=== PATIENT | female | born 1985 | race Caucasian/White ===

== ENCOUNTER → 2017-10-08 | Outpatient (CLI) | payer OTHER | LOC: FIMAGING 08:57 | PROVIDERS: ATTEND Advanced Practice Midwife | DX: O26.21 Pregnancy care for patient with recurrent pregnancy loss, first trimester (principal); Z3A.13 13 weeks gestation of pregnancy ==

== ENCOUNTER → 2017-11-19 | Outpatient (CLI) | payer OTHER | LOC: FIMAGING 08:13 | PROVIDERS: ATTEND Advanced Practice Midwife | DX: O26.22 Pregnancy care for patient with recurrent pregnancy loss, second trimester (principal); O44.42 Low lying placenta NOS or without hemorrhage, second trimester; Z3A.19 19 weeks gestation of pregnancy ==

== ENCOUNTER → 2018-02-18 | Outpatient (CLI) | payer OTHER | LOC: FIMAGING 09:20 | PROVIDERS: ATTEND Advanced Practice Midwife | DX: O44.43 Low lying placenta NOS or without hemorrhage, third trimester (principal); Z3A.32 32 weeks gestation of pregnancy ==

== ENCOUNTER → 2018-03-18 | Outpatient (CLI) | payer OTHER | LOC: FIMAGING 10:30 | PROVIDERS: ATTEND Advanced Practice Midwife | DX: O44.23 Partial placenta previa NOS or without hemorrhage, third trimester (principal); Z3A.36 36 weeks gestation of pregnancy ==

== ENCOUNTER 2018-03-20 11:35 | Inpatient (IN) | payer OTHER ==
--- NOTE | 2018-03-20 14:11 | PDGENHP ---
History and Physical History and Physical: Care: [facility] HPI: Patient is a 33 yo @ 36-5weeks that presents to L&D with complaints of not feeling well and taking BP at home reading 150's/100's. She denies any headaches, visual changes, epigastric pain. She does report nausea and just overall "blah" feeling[place]000 [place] She denies any contractions, LOF, VB. She does report +FM. EDC: 04/12/18 which is based on Ultrasound at 10 weeks. LMP: 06/26/17 which is unknown Her is complicated by: habitual aborter, marginal previa, low antithrombin III activity, excessive weight gain, proteinuria (0.46 @ 34wks) Review of Systems: Constitutional: Denies any fever, chills, or fatigue HEENT: denies any visual changes, difficulty swallowing, hearing loss Cardiovascular: Denies any chest pain, palpitations, leg swelling Respiratory: denies any cough, wheezing, or shortness of breathe GI: Denies any vomiting, diarrhea, constipation, +nausea : denies any dysuria, urgency, frequency, vaginal bleeding Musculoskeletal: denies any muscle or bone pain Skin: denies any rashes Neuro: denies any headache, seizures, lightheadedness, dizziness, or loss of consciousness Psychiatric: denies any depression, anxiety, or SI/HI thoughts HISTORY: Previous OB history: SABx3 (2015,2016,2017) Past medical history: anxiety (no meds) Past surgical history: none Social: Denies any alcohol, tobacco, or drug use. Family history: Not relevant Medications: PNV, DHA Allergies (list reaction): NKDA LABS: Rh: O+ ABS: Neg Rubella: Immune HbsAg: NR HIV: NR VDRL: NR 1hr: 63 GC: Neg Chlamydia: Neg Pap: Normal GBS: negative PHYSICAL EXAM: Constitutional: WN, A&Ox3 HEENT: normocephalic atraumatic, supple Skin: Warm, dry, intact Heart: RRR, no murmur Chest: CTA-B Abdomen: Soft, nontender, gravid SVE: deferred Extremities: 1+ edema, negative homans sign Neuro: grossly normal Psych: normal affect assessment: FHT baseline 130 +accels, no decels, moderate variability Contractions: toco irregular, but pt not feeling any pain/discomfort with them Assessment: 1) 33yo @ 36-5wks (10) 2) PreEclampsia without severe features 3) Marginal previa - no bleeding 4) Cat 1 FHR tracing Plan: 1) Admit to L&D 2) monitor BPs closely 3) NST q shift 4) steroids x2 (24hrs apart) 5) proceed with primary c/s on Sunday03/22/2018 @ 37wks due to previa reviewed with MFM, Milana Watson, recommended pt to stay in house and monitor closely until 37wks then deliver via primary c/s, deliver sooner if indicated by symptoms/abnormal labs. Dr Liseth Garcia, aware and agrees with plan of care. Today's visit was approximately 45 min, of which >50% of visit 30 min, was spent face to face with pt on direct counseling/coordination of care.
[2018-03-20] MEDS: BETAMETHASONE IM SYRINGE IM SCH (17:22)
--- NOTE | 2018-03-20 17:47 | GHP ---
DATE OF ADMISSION: 03/20/2018 ADMITTING DIAGNOSES: 1. Intrauterine at 36 weeks 5 days. 2. Marginal placenta previa. 3. Preeclampsia without severe features. HISTORY OF PRESENT ILLNESS: The patient is a 33-year-old, G4, P 0-0-3-0, at 36- 5/7 weeks, with an estimated due date 04/12/2018, by a 10 week ultrasound. The patient is under the care of the midwives at [facility] and will now be under the care of [facility] since the patient is now high risk. The patient presented to Labor and Delivery with complaints of not feeling well and blood pressures at home with readings of 150s over 100s. The patient denies any headaches, visual changes, epigastric or right upper quadrant pain at this time. She does report nausea, and just overall feeling "blah." Patient denies any leakage of fluid, vaginal bleeding or contractions. States good movement. The patient was just seen by MFM 2 days ago with an estimated weight 30th percentile and a marginal placenta previa noted; was previously a low-lying placenta. MFM recommended patient be delivered via at 37 weeks to avoid spontaneous labor. Patient hernandez good care and presented to [facility] in first trimester. is complicated by the patient being a habitual aborter. Work-up with antiphospholipid labs were negative. Patient does have a history of low antithrombin III activity and no anticoagulation needed during the . There has been excessive maternal weight gain, the patient put on 56 pounds at 34 weeks. There was some elevated blood pressures in the 3rd trimester and patient had proteinuria with an elevated P to C ratio 0.46 at 34 weeks. The patient did receive Tdap vaccine. GBS culture is negative. PAST OBSTETRICAL HISTORY: In 2015, missed AB at 7-8 weeks; in 2016, a missed AB at 10 weeks; in 2017, a missed AB at 11 weeks. PAST GYNECOLOGIC HISTORY: Age of menarche 17. Cycles every 28 days for 6-7 days. LMP 06/29/2017. The patient denies a history of any abnormal Pap smears or any exposure to sexually transmitted diseases. CURRENT MEDICATIONS: Include vitamins, DHA. ALLERGIES: No known drug allergies. PAST MEDICAL HISTORY: The patient has history of anxiety. PAST SURGICAL HISTORY: None. FAMILY HISTORY: Mother, grandmother with thyroid dysfunction. SOCIAL HISTORY: The patient is and she lives with her . 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 She denies any alcohol, tobacco, or illicit drug use during this . REVIEW OF SYSTEMS: Ten point review of systems negative. Pertinent positives noted in HPI. LABORATORIES: H and H first-trimester 14.4 and 41.7, platelets 266. Blood type O positive, antibody negative. RPR nonreactive. Rubella immune. Hepatitis B surface antigen negative. HIV negative. TSH 0.793. First trimester UDS negative. UA, urine culture negative. Pap smear normal 2015. Gonorrhea and chlamydia cultures negative in 10/2013. Innatal screen negative. H and H third-trimester 13.2 and 30.9. 1 hour Glucola 63. GBS culture is negative. LABORATORY STUDIES: White count 12.96, H and H 14.1 and 40, platelets 192. Creatinine 0.5, AST 24, ALT 22. The P to C ratio is elevated at 0.6. PHYSICAL EXAM: VITAL SIGNS: On admission, vital signs are stable. Blood pressure is labile, 120s to 130s over 80s to 90s, with a high of 140/101. The patient is afebrile, 36.7. Heart rate 81, respirations 14. GENERAL: The patient is a well-nourished, well-developed female. Alert and oriented x3. No apparent distress. SKIN: Dry, warm, without rash. NEURO: Grossly intact. CARDIOVASCULAR: Regular rate and rhythm. LUNGS: Clear to auscultation bilaterally. ABDOMEN: Gravid, soft, nontender. PELVIC: Deferred. EXTREMITIES: Normal to inspection without calf tenderness or edema. ASSESSMENT: The patient is a 33-year-old, 4, para 0-0-3-0, at 36-5/7 weeks with marginal placenta previa and preeclampsia without severe features. PLAN: 1. Admit to Labor and Delivery. 2. [facility] consulted and agrees with the plan. Will give late course of steroids 24 hours apart. 3. Continue to monitor blood pressures closely as well as onset of PIH symptoms , if worsening will start MgSO4. 4. Plan for delivery via per [facility] recommendation at 37 weeks on . 5. NSTs q. shift. 6. Will continue to monitor for any bleeding, signs of labor, or worsening PIH symptoms. /[id number]/MODL MTDD
--- NOTE | 2018-03-21 10:16 | OBPROG ---
Labor Progress Note Assessment/Plan: Assessment: IUP at 36w6d, preeclampsia without severe features marginal previa receiving BMZ - second dose this evening GBS -, O pos Plan: cont hosp bedrest and BMZ today and c/s tomorrow 03/21/18 10:10 Subjective/Intrapartum Course: 03/21/18 10:16 Pt doing well. Slept ok. No headache, nausea, or visual changes. Good FM, no leaking or bleeding. No ctxns. understands plan for primary c/s tomorrow am. will be NPO for 6 hrs prior. Objective: 03/20/18 12:50 03/20/18 12:50 Total Bilirubin 0.3 mg/dL (0.1-1.4) 03/20/18 12:50 AST 24 IU/L (14-46) 03/20/18 12:50 ALT 22 IU/L (9-52) 03/20/18 12:50 - SVE Membranes: Intact - Contraction Pattern Assessment Current Contraction Pattern: Other (Specify) (not kylah) - FHR Assessment Cooney FHR (bpm): 130 FHR Pattern Variability: Moderate FHR Category: 1 (reactive NST, accels, no decels) - Physical Exam General Appearance: WD/WN, alert, no apparent distress Abdomen: non-tender, soft, other (NST reactive) Extremities: non-tender, pedal edema (minimal) DTR- Lower Extremities: Knee (R): 2+, Knee (L): 2+ Skin: normal color, warm/dry Neuro/Psych: alert, normal mood/affect Oxytocin Orders Assessment - Pre-Induction/Augmentation Assessment Gestational Age: 36 week(s) and 5 day(s) ICD10 Worksheet Patient Problems: Problems Problem Status Onset Marginal placenta previa Acute Preeclampsia Acute and not yet delivered in third trimester Acute - ICD10 Problem Qualifiers (1) and not yet delivered in third trimester (2) Preeclampsia (3) Marginal placenta previa
[2018-03-21] MEDS: BETAMETHASONE IM SYRINGE IM SCH (17:18)
[2018-03-21] MEDS ORDERED: ZOLPIDEM TARTRATE 5 MG TAB PO PRN (19:19)
[2018-03-22 08:57] LABS: PLATELET COUNT 218 10^3/uL (150-400)
--- NOTE | 2018-03-22 09:33 | PDHPUP ---
History & Physical Update H&P update statement: This history and physical update is based on an assessment of the patient which was completed after admission or registration (within 24 hours), but prior to the surgery/procedure. I am now assuming the patient's care as of this morning. Plan has been decided upon for PLTCS with MFM recommendation secondary to marginal placenta previa. I met with patient and reviewed those recommendations and she is in agreement with that plan. Subjectively doing fine this AM - no new or evolving s/sx of PIH. No vaginal bleeding. RBA discussed with patient and consents signed for PLTCS. Routine preop orders, weight-based Ancef. H&P update: H&P reviewed & patient examined, no change in patient's condition since H&P completed
[2018-03-22] MEDS ORDERED: LR 500 ML IV ONE (09:51)
[2018-03-22] MEDS ORDERED: CITRIC ACID/SODIUM CITRATE 30 ML UDCUP PO ONE (09:51)
[2018-03-22] MEDS ORDERED: ceFAZolin 2 GM/DEXTROSE 100 ML IV ONE (09:51)
[2018-03-22] MEDS ORDERED: LR 1,000 ML IV SCH (10:00)
[2018-03-22] MEDS ORDERED: MEPERIDINE 25 MG/0.5 ML AMP IVP PRN (11:02)
[2018-03-22] MEDS ORDERED: METOCLOPRAMIDE 10 MG/2 ML VIAL IVP PRN ×2 (11:02→11:34)
[2018-03-22] MEDS ORDERED: fentaNYL 100 MCG/2 ML INJ IVP PRN (11:02)
[2018-03-22] MEDS ORDERED: ONDANSETRON 4 MG/2 ML VIAL IVP PRN ×2 (11:02→11:34)
[2018-03-22] MEDS ORDERED: PHENYLEPHRINE HCL 100 MCG/ML SYR IVP PRN (11:02)
--- NOTE | 2018-03-22 11:02 | PDANEPAE ---
ANE Past Medical History - Pulmonary History Hx Sleep Apnea: No ANE Review of Systems Review of Systems: ANE Patient History - Allergies Allergies/Adverse Reactions: No Known Allergies Allergy (Unverified 03/20/18 11:56) - Smoking Hx Smoking Status: Never smoked ANE Labs/Vital Signs - Labs Result Diagrams: 03/22/18 08:15 03/22/18 08:15 - Vital Signs Height: 157.48 cm Weight: 82.1 kg ANE Physical Exam - Airway Neck exam: FROM Mallampati Score: Class 2 Mouth exam: normal dental/mouth exam - Pulmonary Pulmonary: no respiratory distress - Cardiovascular Cardiovascular: regular rate and rhythym - ASA Status ASA Status: II ANE Anesthesia Plan Anesthesia Plan: spinal
[2018-03-22] MEDS ORDERED: fentaNYL 100 MCG/2 ML INJ ONE (11:08)
[2018-03-22] MEDS ORDERED: morphINE PF 5 MG/10 ML INJ ONE (11:09)
[2018-03-22] MEDS ORDERED: BUPIVACAINE/DEXTROSE 7.5MG/ML 2 ML SPINAL AMP SP ONE (11:11)
[2018-03-22] MEDS ORDERED: METOCLOPRAMIDE 10 MG/2 ML VIAL ONE (11:11)
[2018-03-22] MEDS ORDERED: DEXAMETHASONE 4 MG/ML VIAL ONE (11:11)
[2018-03-22] MEDS ORDERED: NALOXONE HCL 0.4 MG/ML INJ IVP PRN (11:34)
[2018-03-22] MEDS ORDERED: AMMONIA AROMATIC 1 EACH AMP IH ONE (11:36)
[2018-03-22] MEDS ORDERED: OXYTOCIN 10 UNIT/ML VIAL ONE (11:36)
[2018-03-22] MEDS ORDERED: LIDOCAINE 1% 300 MG/30 ML SDV ONE (11:36)
[2018-03-22] MEDS ORDERED: TERBUTALINE SULFATE 1 MG/ML VIAL ONE (11:36)
[2018-03-22] MEDS ORDERED: OLIVE OIL 118 ML BTL ONE (11:36)
[2018-03-22] MEDS ORDERED: MISOPROSTOL 200 MCG TAB ONE (11:37)
[2018-03-22] MEDS ORDERED: OXYTOCIN 100 UNITS/10 ML VIAL ONE (12:49)
--- NOTE | 2018-03-22 13:08 | POSTANESTH ---
Post Anesthetic Evaluation Cardiovascular Status: Similar to Pre-Op Cond Respiratory Status: Similar to Pre-op Cond. Level of Consciousness/Mental Status: Alert and Oriented Pain Control: Adequate, Prn Tx Ordered Nausea/Vomiting Control: Adequate, Prn Tx Ordered Complications Possibly Related to Anesthesia: None Noted
--- NOTE | 2018-03-22 13:15 | POSTOPPROG ---
Post Op Note Date of Operation: 03/22/18 Surgeon: Alfredo Al Clinical Reimbursement Specialist: Adamaris Aldana CNM, JADE Bates Anesthesia: Spinal Pre-op Diagnosis: Pre-eclampsia without severe features, Placenta previa ( marginal/partial) Post-op Diagnosis: Same Procedure: PLTCS Findings: Normal uterus, normal tubes and ovaries. Vigorous baby girl. Inf/Abcess present in the surg proc area at time of surgery?: No EBL: 600cc Complications: None Specimen(s): Placenta not sent to path, cord blood gasses not sent
--- NOTE | 2018-03-22 13:19 | OBDEL ---
Info Type: Primary Presentation at Delivery: Vertex L&D Analgesia/Anesthesia Type: Spinal GBS+: No Intrapartum Medications: Generic Name Dose Route Start Last Admin Trade Name Thierryq PRN Reason Stop Dose Admin Zolpidem Tartrate 5 mg 03/21/18 19:19 03/21/18 21:53 Ambien PO 09/17/18 19:18 5 mg HS PRN Administration Sleep/Insomnia Discontinued Medications Generic Name Dose Route Start Last Admin Trade Name Thierryq PRN Reason Stop Dose Admin Betamethasone Acet/Betameth SodPhos 12 mg 03/20/18 17:00 03/21/18 17:18 Celestone Im Syringe IM 03/21/18 17:01 12 mg Q24H SUJEY Administration Citric Acid/Sodium Citrate 30 ml 03/22/18 09:51 03/22/18 11:47 Bicitra PO 03/22/18 09:52 30 ml ONCALL ONE Administration Cefazolin Sodium/Dextrose 100 mls @ 200 mls/hr 03/22/18 09:51 03/22/18 11:39 Ancef IV 03/22/18 10:20 100 mls ONCALL ONE Administration Protocol - Hospital Course Intrapartum: 03/21/18 10:16 Pt doing well. Slept ok. No headache, nausea, or visual changes. Good FM, no leaking or bleeding. No ctxns. understands plan for primary c/s tomorrow am. will be NPO for 6 hrs prior. Indications for Delivery: Preeclampsia Mild, Placenta Previa (Marginal ) Operative Report - Delivery Pre-op Diagnoses: Pre-eclampsia without severe features, Placenta previa ( partial/marginal) Post-op Diagnoses: Same History of Prior Section: No Nulliparous Prior to Delivery: No Indications for Current Section: Placenta Previa (Marginal) Procedure: Scheduled Surgeon: Alfredo Al Observer Gravity Prospecting: Keli Cerrato (Adamaris Aldana CNM) Complications: None, Nucal Cord Findings: Healthy baby girl, normal placenta, normal tubes and uterus and ovaries EBL: 600cc Cord Gases: Not sent Data LORI: 04/12/18 Gestational Age: 37 week(s) and 0 day(s) Co[place] Delivery Date: 03/22/18 Delivery Time: 12:25 Sex of Infant: Female Score (1 Min): 8 Score (5 Min): 9 Shoulder Dystocia Time Head Delivered: 12:25 Time Body Delivered: 12:25 ICD10 Worksheet Patient Problems: Problems Problem Status Onset Marginal placenta previa Acute Preeclampsia Acute and not yet delivered in third trimester Acute
--- NOTE | 2018-03-22 13:22 | SUROPNOTE ---
LESLIE Operative Report - Surgery Date of Operation: 03/22/18 Surgeon: Alfredo Al Shift Superintendent Caustic Cresylate: Adamaris Aldana CNM, JADE Bates Anesthesia: Spinal Pre-op Diagnosis: Pre-eclampsia without severe features, Placenta previa ( marginal/partial) Post-op Diagnosis: Same Procedure: PLTCS Findings: Normal uterus, normal tubes and ovaries. Vigorous baby girl. Inf/Abcess present in the surg proc area at time of surgery?: No EBL: 600cc Complications: None Specimen(s): Placenta not sent to path, cord blood gasses not sent Technique: The patient was taken to the OR where spinal was placed / epidural was dosed and anesthesia found to be adequate. The patient was then positioned supine with a leftward tilt and a time-out was performed. She was given weight-based antibiotics prior to skin incision. The abdomen was prepped and draped in normal sterile fashion. A Pfannenstiel skin incision was made with the scalpel and carried down to the fascia. The fascia was incised in the midline and the incision extended bilaterally sharply with scissors. The fascia was dissected off of the underlying rectus muscles superiorly and inferiorly also sharply using scissors. The rectus were in the midline and the peritoneum identified and entered bluntly without issue. The peritoneal incision was extended and the bladder blade was then placed. The vesicouterine junction was identified and a bladder flap created sharply and developed bluntly. A transverse incision was made with the scalpel in the lower uterine segment and extended with cephalad and caudad traction on the incision edges. The head was encountered and elevated out of the pelvis and brought to the incision. We had brief difficulty delivering the baby's head through the incision and I did apply the hand-held soft cup vacuum and delivered the head with ease with one gentle pull. Suction only applied for 5 seconds. Head ultimately delivered atraumatically, followed by the shoulders and body. The nose and mouth were bulb suctioned. We did wait for 60 seconds before clamping and cutting the cord and then the was handed to pediatric staff. Cord blood gases were not sent and the placenta was not sent to pathology. The uterus was then exteriorized and carefully wiped of all debris. The uterus was closed in two layers - the first layer was running with 180 0-vloc and the second a vertical imbricating layer using 0-vicryl. The gutters were cleared of all clots. The uterine incision was reinspected and found to be hemostatic after placement of additional figure of eight sutures of 3-0 vicryl. The uterus was then returned to the abdomen. The fascia was elevated and the rectus muscles and subcutaneous tissues were found to be hemostatic. The fascia was closed with a running 0-Vicryl - single suture. The subcutaneous tissues were irrigated and hemostasis obtained. The subcutaneous space was not closed as she had 0.5cm of subcutaneous fat. The skin was closed with 4-0 vloc undyed and then covered with Medipore dressing. The patient tolerated the procedure and was taken to recovery in stable condition. Lap, needle, sponge, and instrument count were announced as correct times two. I was present and scrubbed for the entire case.
[2018-03-22] MEDS ORDERED: PROMETHAZINE HCL 25 MG/ML INJ IVP PRN (14:49)
[2018-03-22] MEDS ORDERED: oxyCODONE IR 5 MG TAB PO PRN (14:49)
[2018-03-22] MEDS ORDERED: SIMETHICONE 80 MG TAB CHEW PO PRN (14:49)
[2018-03-22] MEDS ORDERED: DOCUSATE SODIUM 100 MG CAP PO PRN (14:49)
[2018-03-22] MEDS: KETOROLAC 30 MG/1 ML SDV IVP SCH ×2 (15:42→21:59)
[2018-03-22] MEDS: ACETAMINOPHEN 325 MG TAB PO SCH ×2 (18:53→22:00)
[2018-03-22] MEDS: IBUPROFEN 600 MG TAB PO SCH ×2 (18:53→22:00)
[2018-03-23] MEDS: KETOROLAC 30 MG/1 ML SDV IVP SCH ×2 (03:40→10:16)
[2018-03-23] MEDS: IBUPROFEN 600 MG TAB PO SCH ×4 (04:26→22:50)
[2018-03-23] MEDS: ACETAMINOPHEN 325 MG TAB PO SCH ×4 (04:34→22:50)
--- NOTE | 2018-03-23 11:43 | OBPP ---
Progress Note Assessment/Plan: Assessment: 33 [id number] POD#1 s/p primary LTCS at 37w0d 2/2 preeclampsia in setting of marginal previa. Doing well, going well, good urine output. Plan: Continue routine post op cares. DC urinary catheter, encourage ambulation. Carmen White MD, FACOG [facility] 03/23/18 11:39 Subjective/ Course: Doing well. Has been resting comfortably. Has dangled legs sitting up on the bed but not out of bed yet. No dizziness or lightheadedness with that. Francesca reg diet, no nausea. No DESAI, vis changes, RUQ or epigastric pain. Mod lochia. 03/23/18 11:41 Objective: 03/23/18 03:00 03/22/18 08:15 Patient ABO/Rh O POSITIVE 03/22/18 08:15 Uric Acid 4.5 mg/dL (2.5-6.8) 03/22/18 08:15 Total Bilirubin 0.3 mg/dL (0.1-1.4) 03/22/18 08:15 Conjugated Bilirubin 0.0 mg/dL (0.0-0.5) 03/22/18 08:15 Unconjugated Bilirubin 0.3 mg/dL (0.0-1.1) 03/22/18 08:15 AST 20 IU/L (14-46) 03/22/18 08:15 ALT 19 IU/L (9-52) 03/22/18 08:15 Lactate Dehydrogenase 530 IU/L (313-618) 03/22/18 08:15 Temp Pulse Resp BP Pulse Ox 36.2 C 64 18 128/85 H 95 03/23/18 08:00 03/23/18 08:00 03/23/18 08:00 03/23/18 08:00 03/23/18 08:00 Intake and Output 03/22/18 03/23/18 03/23/18 17:59 05:59 17:59 Intake Total 3350 Output Total 6701 508 0726 Balance -1100 2950 -1100 Weight 82.1 kg Intake: Oral (ml) 1600 IV Intake (ml) 500 IV Infused (ml) 1250 Lr 1,000 ml @ 125 mls/hr 1250 IV CONT SUJEY Rx#: [id number] Output: Urine (ml) 256 631 9433 Catheter 350 332 6474 Estimated Blood Loss (ml) 600 Other: Intake Quantity Yes Sufficient gen - pleasant, NAD CV - RRR chest - CTAB abd - soft, + BS, fundus u-1 firm, NT dressing - C/D/I ext - SCDs in place, no calf tenderness, trace edema, neg Dave's BLE Uterine Position/Fundal Height: Umbilicus -2 Uterine Tone: Firm
[2018-03-24] MEDS: IBUPROFEN 600 MG TAB PO SCH ×2 (05:14→19:27)
[2018-03-24] MEDS: ACETAMINOPHEN 325 MG TAB PO SCH ×3 (05:14→19:27)
[2018-03-24] MEDS ORDERED: MAGNESIUM HYDROXIDE 30 ML UDCUP PO PRN (10:13)
[2018-03-24] MEDS ORDERED: POLYETHYLENE GLYCOL 3350 17 GM PKT PO PRN (10:13)
[2018-03-24] MEDS ORDERED: BISACODYL 10 MG SUPP PR PRN (10:13)
[2018-03-24] MEDS ORDERED: LACTULOSE 20 GM/30 ML UDCUP PO PRN (10:13)
[2018-03-24] MEDS: SENNOSIDES/DOCUSATE SODIUM TAB PO SCH ×2 (10:44→21:00)
--- NOTE | 2018-03-24 10:48 | OBPP ---
Progress Note Assessment/Plan: Assessment: Plan: 03/24/18 10:47 PPD #2 post csection Elevated pressures; no symptoms of preeclampsia Cracked nipples Plan: APNO to nipples after feedings; continue to work with on latch Plans on discharge home tomorrow Subjective/ Course: Doing well. Has been resting comfortably. Has dangled legs sitting up on the bed but not out of bed yet. No dizziness or lightheadedness with that. Francesca reg diet, no nausea. No DESAI, vis changes, RUQ or epigastric pain. Mod lochia. 03/23/18 11:41 03/24/18 10:45 Doing well overall. Has been up ambulating as much as possible. Just taking ibuprofen and tylenol which is managing pain. Tolerating diet and passing flatus. Bleeding minimal. Denies DESAI, visual changes or epigastric pain. 03/24/18 10:45 Objective: 03/23/18 03:00 03/22/18 08:15 Patient ABO/Rh O POSITIVE 03/22/18 08:15 Uric Acid 4.5 mg/dL (2.5-6.8) 03/22/18 08:15 Total Bilirubin 0.3 mg/dL (0.1-1.4) 03/22/18 08:15 Conjugated Bilirubin 0.0 mg/dL (0.0-0.5) 03/22/18 08:15 Unconjugated Bilirubin 0.3 mg/dL (0.0-1.1) 03/22/18 08:15 AST 20 IU/L (14-46) 03/22/18 08:15 ALT 19 IU/L (9-52) 03/22/18 08:15 Lactate Dehydrogenase 530 IU/L (313-618) 03/22/18 08:15 Temp Pulse Resp BP Pulse Ox 36.2 C 58 L 18 138/88 H 97 03/24/18 08:30 03/24/18 08:30 03/24/18 08:30 03/24/18 08:32 03/24/18 08:30 Incision site well approximated; no redness or drainage; steri strips in place Breasts soft, nipples cracked bilaterally Uterine Position/Fundal Height: Umbilicus -1 Uterine Tone: Firm
[2018-03-24] MEDS ORDERED: SENNOSIDES/DOCUSATE SODIUM TAB PO SCH (21:00)
[2018-03-25] MEDS: IBUPROFEN 600 MG TAB PO SCH ×5 (01:47→15:13)
[2018-03-25] MEDS: ACETAMINOPHEN 325 MG TAB PO SCH ×4 (01:47→15:14)
[2018-03-25 10:46] VITALS: BP 140/88
[2018-03-25] MEDS: SENNOSIDES/DOCUSATE SODIUM TAB PO SCH (11:44)
--- NOTE | 2018-03-25 12:47 | OBGCSDC ---
General Delivery Information - General Info : 4 Para: 1 Abortions: 3 Type: Primary L&D Analgesia/Anesthesia Type: Spinal Admission Date: 03/21/18 Labs: Patient ABO/Rh O POSITIVE 03/22/18 08:15 Hct 38.3 % (38.0-47.0) 03/23/18 03:00 - Hospital Course Intrapartum: 03/21/18 10:16 Pt doing well. Slept ok. No headache, nausea, or visual changes. Good FM, no leaking or bleeding. No ctxns. understands plan for primary c/s tomorrow am. will be NPO for 6 hrs prior. : Doing well. Has been resting comfortably. Has dangled legs sitting up on the bed but not out of bed yet. No dizziness or lightheadedness with that. Francesca reg diet, no nausea. No DESAI, vis changes, RUQ or epigastric pain. Mod lochia. 03/23/18 11:41 03/24/18 10:45 Doing well overall. Has been up ambulating as much as possible. Just taking ibuprofen and tylenol which is managing pain. Tolerating diet and passing flatus. Bleeding minimal. Denies DESAI, visual changes or epigastric pain. 03/24/18 10:45 S) Pt doing well, reports min pain and bleeding. she is ambulating and voiding without difficulty. She is . She denies any headaches, visual changes, epigastric pain. She desires discharge home today. O) VSS- BP140/90's, afebrile constitutional: WNF, A&Ox3 HEENT: normocephalic, atraumatic, supple Heart: RRR, No murmur Chest: CTA-B Breasts: soft, nontender, not engorged, nipples normal- no cracks/bleeding Abdomen: Soft, nontender Incision: C/D/I, well approximated, no erythema, no drainage Uterus: Firm at U-2 Lochia: Minimal rubra Perineum: Intact Extremities: Trace edema, and negative Dave's sign Neuro: Grossly normal A) 33-year-old S/P primary c/s POD#3 Pre-eclampsia P) Discharge home today Continue Pelvic rest x6wks Discussed danger signs (infection, preeclampsia, depression, heavy bleeding, etc ) RTO in 2 days for BP check, then 2//6 weeks 03/25/18 17:37 - Delivery Providers Surgeon: Alfredo Al Public Address System Operator: Keli Cerrato (Adamaris Aldana CNM) - Delivery Indications for Current Section: Placenta Previa (Marginal) Surgical Procedures: Scheduled Intra-op Complications: None, Nucal Cord EBL: 600cc [place] Data LORI: 04/12/18 Gestational Age: 37 week(s) and 3 day(s) [place] Delivery Date: 03/22/18 Delivery Time: 12:25 Sex of Infant: Female Weight (gm): 2584 g Score (1 Min): 8 Score (5 Min): 9 Discharge Information - Discharge Information Prescriptions: oxyCODONE IR [Oxycodone Ir (*)] 5 mg PO Q4HRS PRN #15 tab PRN Reason: Pain, Severe Ibuprofen [Motrin (*)] 600 mg PO Q6H #60 tab Condition: Good
== END 2018-03-25 16:04 | disposition home or self-care (01) | DRG 787 ==
LOC: FLD 11:35 → OBSVTOIN 03-21 13:49 → FOB 03-22 16:32
PROVIDERS: ADMIT Advanced Practice Midwife; ATTEND Advanced Practice Midwife
PROC: 10D00Z1 Extraction of Products of Conception, Low, Open Approach (ICD-10-PCS; principal; 2018-03-22)
DX: O44.23 Partial placenta previa NOS or without hemorrhage, third trimester (principal); O14.93 Unspecified pre-eclampsia, third trimester; Z3A.36 36 weeks gestation of pregnancy; Z37.0 Single live birth
CPT/HCPCS: J0690; J0702; J1100; J1885; J2274; J2590; J2765; J3010; J3105

== ENCOUNTER 2018-03-30 13:32 | Observation (INO) | payer OTHER ==
--- NOTE | 2018-03-30 13:55 | PDGENHP ---
History and Physical History and Physical: CARE: [facility] HPI: Patient is a 33 yo @ 8 days who presents to L&D with complaints of headache and elevated BP. She has been home caring for in [place] after primary delivery on 03/22/18. She reports a headache x 2 days that has resolved now after increase in hydration. She also reports two high blood pressures at home 145/95 yesterday and 150/105 today. Her was complicated by: marginal previa, c/s at 37 weeks. Review of Systems: Constitutional: Denies any fever, chills, or fatigue HEENT: denies any visual changes, difficulty swallowing, hearing loss Cardiovascular: Denies any chest pain, palpitations, leg swelling Respiratory: denies any cough, wheezing, or shortness of breathe GI: Denies any nausea, vomiting, diarrhea, constipation : denies any dysuria, urgency, frequency, vaginal bleeding Musculoskeletal: denies any muscle or bone pain Skin: denies any rashes Neuro: denies any headache, seizures, lightheadedness, dizziness, or loss of consciousness Psychiatric: denies any depression, anxiety, or SI/HI thoughts HISTORY: Previous OB history: , marginal previa, pre-eclampsia Social history: hx of tobacco use prior to , no alcohol or tobacco since Family history: not relevant Past medical history: anxiety Past surgical history: c/s 03/22 Medications: PNV Allergies (list reaction): NKDA LABS: Rh: O+ ABS: Neg Rubella: Immune HbsAg: NR HIV: NR VDRL: NR 1hr: 63 GC: Neg Chlamydia: Neg Pap: Normal GBS: neg PHYSICAL EXAM: Constitutional: WN, A&Ox3 HEENT: normocephalic atraumatic, supple Heart: RRR, no murmur Chest: CTA-B Skin: warm, dry, intact Abdomen: Soft, nontender, gravid Extremities: no edema, negative homans sign Neuro: grossly normal Psych: normal affect BP 144/97, 146/98 Assessment: 1) 33 yo G 4 P 1 with elevated BP post- 2) 8 days for primary c/s Plan: 1) Admit to L&D for observation, serial blood pressure monitoring and PIH labs 2) case discussed with Vidya Lomax
[2018-03-30 14:56] LABS: PLATELET COUNT 321 10^3/uL (150-400)
--- NOTE | 2018-03-30 16:59 | OBGCSDC ---
General Delivery Information - General Info : 4 Para: 1 Abortions: 3 Type: Primary Admission Date: 03/30/18 Labs: Hct 44.7 % (38.0-47.0) 03/30/18 14:00 - Hospital Course : 03/30/18 16:57 Here for elevated BP . PIH labs normal except for elevated P/C ratio which may be in part to bleeding. BP elevated but not in critical range. Asymptomatic at this time. Pt instructed to go home rest, care of self and baby , call if symptoms worsen. F/U in office on Sunday. Discharge Information - Discharge Information Condition: Good
== END 2018-03-30 17:32 | disposition home or self-care (01) ==
LOC: FLD 13:32
PROVIDERS: ADMIT Advanced Practice Midwife; ATTEND Advanced Practice Midwife
DX: R03.0 Elevated blood-pressure reading, without diagnosis of hypertension (principal); R51 Headache
CPT/HCPCS: G0378 ×2